=== PATIENT | female | born 1945 | race Caucasian/White ===

== ENCOUNTER → 2017-02-25 | Outpatient (CLI) | payer OTHER | LOC: BMCIMAGING 16:06 | PROVIDERS: ATTEND Internal Medicine | DX: M51.37 Other intervertebral disc degeneration, lumbosacral region (principal); M81.0 Age-related osteoporosis without current pathological fracture | CPT/HCPCS: 82607-90 ==

== ENCOUNTER → 2017-04-06 | Outpatient (CLI) | payer OTHER | LOC: BMCIMAGING 14:45 | PROVIDERS: ATTEND Internal Medicine Rheumatology | DX: Z13.820 Encounter for screening for osteoporosis (principal); M81.0 Age-related osteoporosis without current pathological fracture ==

== ENCOUNTER → 2017-04-27 | Outpatient (CLI) | payer OTHER | LOC: BMCIMAGING 14:58 | PROVIDERS: ATTEND Internal Medicine | DX: Z12.31 Encounter for screening mammogram for malignant neoplasm of breast (principal) | CPT/HCPCS: G0202 ==

== ENCOUNTER → 2018-04-29 | Outpatient (CLI) | payer OTHER | LOC: BMCIMAGING 13:05 | PROVIDERS: ATTEND Internal Medicine | DX: Z12.31 Encounter for screening mammogram for malignant neoplasm of breast (principal) ==